=== PATIENT | female | born 1950 | race Caucasian/White ===

== ENCOUNTER → 2020-06-15 16:42 | Outpatient (CLI) | payer MEDICARE, SELFPAY ==
[2020-06-15 21:41] LABS: Basophils % 0.7 % (0.1-2.0); Eosinophils # 0.3 K/mm3 (0.0-0.4); Eosinophils % 6.8 % (0.1-12.0); Hematocrit 41.5 % (37.0-47.0); Hemoglobin 13.7 g/dL (12.2-16.2); Lymphocytes # 1.7 K/mm3 (0.7-4.5); Lymphocytes % 34.1 % (10-50); Mean Corpuscular HGB Conc 33.1 g/dL (31.8-35.4); Mean Corpuscular Hemoglobin 31.8 pg (27.0-31.2); Mean Corpuscular Volume 96.1 fl (81-99); Mean Platelet Volume 8.3 fl (7.4-10.4); Monocytes # 0.4 K/mm3 (0.1-1.0); Monocytes % 7.6 % (1.7-9.3); Neutrophils # 2.5 K/mm3 (1.8-7.8); Neutrophils % 50.9 % (37.0-80.0); Platelet Count 236 K/mm3 (142-424); Red Blood Count 4.32 M/mm3 (4.20-5.40); Red Cell Distribution Width 15.5 % (11.5-17.5)
[2020-06-15 21:52] LABS: INR 1.45 (0.9-1.1); Prothrombin Time 15.6 seconds (9.4-11.8)
[2020-06-15 22:11] LABS: Alanine Aminotransferase 30 U/L (12-78); Albumin Level 4.2 g/dl (3.5-5.0); Albumin/Globulin Ratio 1.4 (1.1-1.8); Alkaline Phosphatase 92 U/L (38-126); Anion Gap 13.5 mEq/L (5-15); Aspartate Amino Transferase 47 U/L (14-36); Bilirubin,Total 2.1 mg/dl (0.2-1.3); Blood Urea Nitrogen 18 mg/dl (7-17); Calcium 9.6 mg/dl (8.4-10.2); Carbon Dioxide 29 mmol/L (22.0-30.0); Chloride 100 mmol/L (98-107); Estimated Glomerular Filt Rate 122 ml/min (>60); GFR (African American) 148 ML/MIN (>60); Glucose 154 mg/dl (74-100); Potassium 4.5 mmoL/L (3.5-5.1); Sodium 138 mmol/L (136-145); Total Protein,Serum 7.2 g/dl (6.3-8.2)
[2020-06-15 22:31] LABS: Hemoglobin A1C 6.9 % (4.0-6.0)
[2020-06-15 22:42] LABS: Thyroid Stimulating Hormone 3.84 uIU/mL (0.465-4.68)
== END ==
PROVIDERS: PCP Nurse Practitioner Family; Visit Provider Nurse Practitioner Family
DX: R42 Dizziness and giddiness (principal); R55 Syncope and collapse; I48.0 Paroxysmal atrial fibrillation; R73.9 Hyperglycemia, unspecified; Z51.81 Encounter for therapeutic drug level monitoring; Z79.01 Long term (current) use of anticoagulants
CPT/HCPCS: 36415; 80053; 83036; 84443; 85025; 85610

== ENCOUNTER → 2020-06-21 08:20 | Outpatient (CLI) | payer MEDICARE, SELFPAY ==
--- NOTE | 2020-06-21 08:37 | US_ITS ---
PROCEDURE: US LIVER CLINICAL INDICATION: Elevated liver enzymes COMPARISON: No exams were available for comparison FINDINGS: PANCREAS: Unremarkable. No obvious mass or abnormal fluid collection. No ductal dilatation LIVER: No focal liver lesions demonstrated. Homogeneous echogenicity. No intrahepatic biliary ductal dilatation evident. There is appropriate direction of blood flow within a non dilated portal vein RIGHT KIDNEY: Unremarkable. Normal size and echogenicity. No hydronephrosis GALLBLADDER: Multiple small gallstones are present. Common bile duct is normal at 3 mm. No gallbladder wall thickening, pericholecystic fluid, or biliary dilatation. IMPRESSION: Cholelithiasis Dictated by: Joel Vizcarra MD 06/21/2020 13:43 Joel Vizcarra MD in [place] 06/21/2020 13:43
--- NOTE | 2020-06-21 08:57 | CA_ITS ---
APPROVED REPORT [id number] Operator: ANTOINETTE Laterality: Bilateral Study Quality: Excellent Indications: SYNCOPE Doppler Spectral Velocity Analysis ECA (R) 90.80/12.00 cm/s ECA (L) 76.30/13.70 cm/s dICA (R) 112.20/30.00 cm/s dICA (L) 81.40/26.60 cm/s [place] (R) 102.80/32.60 cm/s [place] (L) 94.20/24.00 cm/s pICA (R) 76.30/19.70 cm/s pICA (L) 83.10/22.30 cm/s dCCA (R) 61.60/17.30 cm/s dCCA (L) 88.30/20.60 cm/s pCCA (R) 75.10/18.00 cm/s pCCA (L) 87.40/17.10 cm/s Vert (R) 60.80/16.30 cm/s Vert (L) 66.00/18.80 cm/s ICA/CCA 1.80 ICA/CCA 1.10 Findings Duplex evaluation demonstrates stenosis of the right proximal internal carotid artery <20% with PSV <140 cm/sec, EDV <100 cm/sec, and IC/CC Ratio <4.0.Duplex evaluation demonstrates stenosis of the left proximal internal carotid artery <20% with PSV <140 cm/sec, EDV <100 cm/sec, and IC/CC Ratio <4.0.Antegrade flow seen bilateral vertebral arteries. Conclusion Duplex evaluation demonstrates stenosis of the right proximal internal carotid artery <20% with PSV <140 cm/sec, EDV <100 cm/sec, and IC/CC Ratio <4.0.Duplex evaluation demonstrates stenosis of the left proximal internal carotid artery <20% with PSV <140 cm/sec, EDV <100 cm/sec, and IC/CC Ratio <4.0.Antegrade flow seen bilateral vertebral arteries. Electronically signed by : Joel Vizcarra MD 06/21/2020 15:16:00
== END ==
PROVIDERS: PCP Nurse Practitioner Family; Visit Provider Nurse Practitioner Family
DX: R55 Syncope and collapse (principal); R42 Dizziness and giddiness; R74.8 Abnormal levels of other serum enzymes
CPT/HCPCS: 76705; 93880

== ENCOUNTER → 2021-11-16 13:18 | Outpatient (CLI) | payer MEDICARE, SELFPAY ==
--- NOTE | 2021-11-16 | CA_ITS ---
FINAL REPORT TECHNIQUE: Color Doppler, duplex Doppler and compression sonography of the right lower extremity venous system was performed. CLINICAL HISTORY: Left leg pain for a year worsened over last 2-3 weeks. Edema noted in LLE. Denies trauma. Multiple varicosities noted in LLE. Patient states she takes Warfarin for the past 13 years. FINDINGS: There is no evidence of deep venous thrombosis from the level of the groin to the calf. There is dilation of the proximal greater saphenous vein measuring up to 1.8 cm. IMPRESSION: No evidence of deep venous thrombosis right lower extremity. Dilation of the proximal greater saphenous vein. Reviewed, Interpreted and Dictated by Gonsalo Wu III, MD Transcribed by Leonela Day Authenticated by Gonsalo Wu III, MD on 11/16/2021 04:02:43 PM [facility]
== END ==
PROVIDERS: PCP Internal Medicine Adolescent Medicine; Visit Provider Internal Medicine Adolescent Medicine
DX: M79.604 Pain in right leg (principal); R60.0 Localized edema
CPT/HCPCS: 93971

== ENCOUNTER 2021-11-28 09:00 | Outpatient (RCR) | payer MEDICARE, SELFPAY ==
--- NOTE | 2021-11-28 09:31 | [facility].PTOPWND ---
Rehab Outpt Wound Evaluation Rehab OP Wound Evaluation Start: 11/28/21 09:06 Freq: Status: Active Protocol: Document 11/28/21 09:25 JB (Rec: 11/28/21 09:31 PHORERIN [id number]) Electronically Signed By Price Hardy, PT 11/28/21 09:25 Subjective/History History History Pt is 71 yowf who presents with increased edema in B LE, R > L since recent bout of cellulitis. Pt reports B LE edema for many years, but worse over the past 2-3 mos. She had insidious onset of redness, pain , and swelling in the R lower leg, was diagnosed with cellulitis, and treated with oral abx. Cellulitis appears to have subsided at this point, but residual edema remains. She reports PMH of a-fib and skin cancer removal from the anterior R yip ~ 13 yrs ago. Subjective Subjective 0/10 pain currently, 1/4 tenderness to palpation in the R gaitor area. Lymphedema Eval Classification of Lymphedema Secondary Lymphedema Yes Stemmer's sign Stemmer's Sign no Stage of Lymphedema Lymphedema stages Stage I (Pitting edema, reduces w/ elevation, no fibrosis) Skin Changes Dry Skin Yes Taut, Shiny Skin Yes Redness Yes Discoloration of Skin Yes Other Changes Yes: blue telangiectasis Pain Scale Pain Scale (0-10) 0 Affected Extremities Areas Affected by Lymphedema/Edema Right Lower Extremity,Left Lower Extremity Manual Lymphatic Drainage Treatment Area MLD Treatment Area Right Lower Extremity,Left Lower Extremity Wound Problems/Impairments Impairments Problems/Impairmments Palpation Tenderness,Impaired Range of Motion,Impaired Endurance,Impaired Gait Pattern,Impaired Walking, Impaired Standing,Impaired Recreational Activities, Increased Edema,Lymphedema Present,Subjective C/O Pain, Impaired Self Care/Self Management Prognosis Rehab Potent
== END 2021-11-28 09:05 | disposition home or self-care (01) ==
LOC: PT 09:00
PROVIDERS: PCP Internal Medicine Adolescent Medicine; Visit Provider Internal Medicine Adolescent Medicine
DX: I89.0 Lymphedema, not elsewhere classified (principal); L03.119 Cellulitis of unspecified part of limb
CPT/HCPCS: 97140; 97162

== ENCOUNTER 2024-12-15 18:05 | Outpatient (CLI) | payer MEDICARE, SELFPAY ==
--- NOTE | 2024-12-15 18:34 | XR_ITS ---
PROCEDURE INFORMATION: Exam: XR Chest Exam date and time: 12/15/2024 6:26 PM Age: 74 years old Clinical indication: Cough; Additional info: Acute cough TECHNIQUE: Imaging protocol: Radiologic exam of the chest. Views: 2 views. COMPARISON: No relevant prior studies available. FINDINGS: Lungs: Opacity in the right base may represent atelectasis or pneumonia. Pleural spaces: Mild right pleural effusion. Heart/Mediastinum: Cardiomegaly Bones/joints: Unremarkable. IMPRESSION: 1. Mild right pleural effusion. 2. Opacity in the right base may represent atelectasis or pneumonia.
== END 2024-12-15 23:59 | disposition home or self-care (01) ==
PROVIDERS: PCP Internal Medicine Adolescent Medicine; Visit Provider Physician Assistant
DX: R05.1 Acute cough (principal)
CPT/HCPCS: 71046

== ENCOUNTER 2024-12-18 10:10 | Outpatient (CLI) | payer MEDICARE, SELFPAY ==
[2024-12-18 11:14] LABS: Basophils % 0.6 % (0.1-2.0); Eosinophils # 0.1 K/mm3 (0.0-0.4); Eosinophils % 1.6 % (0.1-12.0); Hematocrit 36.6 % (37.0-47.0); Hemoglobin 11.6 g/dL (12.2-16.2); Lymphocytes # 1.2 K/mm3 (0.7-4.5); Lymphocytes % 24.8 % (10-50); Mean Corpuscular HGB Conc 31.7 g/dL (31.8-35.4); Mean Corpuscular Hemoglobin 30.7 pg (27.0-31.2); Mean Corpuscular Volume 96.8 fl (81-99); Mean Platelet Volume 9.3 fl (7.4-10.4); Monocytes # 0.5 K/mm3 (0.1-1.0); Monocytes % 10.2 % (1.7-9.3); Neutrophils # 3.1 K/mm3 (1.8-7.8); Neutrophils % 62.4 % (37.0-80.0); Nucleated Red Blood Cells # 0 10^3/uL; Nucleated Red Blood Cells % 0 %; Platelet Count 206 K/mm3 (142-424); Red Blood Count 3.78 M/mm3 (4.20-5.40); Red Cell Distribution Width 16.4 % (11.5-17.5); White Blood Count 4.9 K/mm3 (4.8-10.8)
[2024-12-18 11:19] LABS: INR 1.75 (0.9-1.1); Prothrombin Time 18.5 seconds (10.1-12.5)
[2024-12-18 11:32] LABS: Albumin Level 4.2 g/dl (3.5-5.0); Chloride 100 mmol/L (98-107); Potassium 4.2 mmoL/L (3.5-5.1); Sodium 139 mmol/L (136-145)
[2024-12-18 11:35] LABS: Alanine Aminotransferase 18 U/L (12-78); Albumin/Globulin Ratio 1.5 (1.1-1.8); Alkaline Phosphatase 73 U/L (38-126); Anion Gap 13.2 mEq/L (5-15); Aspartate Amino Transferase 31 U/L (14-36); Bilirubin,Total 2.2 mg/dl (0.2-1.3); Blood Urea Nitrogen 14 mg/dl (7-17); Calcium 9.9 mg/dl (8.4-10.2); Carbon Dioxide 30 mmol/L (22.0-30.0); Estimated Glomerular Filt Rate 98 ml/min (>60); GFR (African American) 118 ML/MIN (>60); Globulin 2.8 g/dL (1.3-3.2); Glucose 158 mg/dl (74-100)
[2024-12-18 11:44] LABS: NT Pro Brain Natriuretic Pep. 1590 pg/mL (0-125)
== END 2024-12-18 23:59 | disposition home or self-care (01) ==
LOC: LAB 10:14
PROVIDERS: PCP Internal Medicine Adolescent Medicine; Visit Provider Physician Assistant
DX: R60.0 Localized edema (principal); I51.7 Cardiomegaly; J90 Pleural effusion, not elsewhere classified; J18.9 Pneumonia, unspecified organism; Z79.01 Long term (current) use of anticoagulants
CPT/HCPCS: 36415; 80053; 83880; 85025; 85610